=== PATIENT | female | born 1980 | race Hispanic/Latino ===

== ENCOUNTER 2023-09-10 18:05 | Emergency (ER) | payer BC ==
[~2023-09-10] VITALS: Ht 154.9 cm; Wt 69.9 kg
[~2023-09-10 18:05] MED LIST: IBUP-2077 PO
[2023-09-10 18:59] LABS: SARS-CoV-2, RNA, NAAT NEGATIVE SARS CoV-2 (NEGATIVE)
[2023-09-10 19:05] LABS: INFLUENZA TYPE A Negative For Type A (NEGATIVE); INFLUENZA TYPE B Negative For Type B (NEGATIVE)
[2023-09-10 19:23] LABS: RAPID GROUP A STREP positive (NEGATIVE)
[2023-09-10] MEDS ORDERED: AMOX1TAB16 PO (21:12)
[2023-09-10 21:22] VITALS: BP 151/72; PULSE 85; RESP 16; O2SAT 100
== END 2023-09-10 21:26 | disposition home or self-care (01) ==
LOC: EDH 18:05
DX: J02.0 Streptococcal pharyngitis (principal); E03.9 Hypothyroidism, unspecified; Z88.1 Allergy status to other antibiotic agents; Z90.49 Acquired absence of other specified parts of digestive tract; Z20.822 Contact with and (suspected) exposure to COVID-19
CPT/HCPCS: 87635; 87804; 87880